=== PATIENT | male | born 1950 | race Caucasian/White ===

== ENCOUNTER 2019-01-26 11:48 | Emergency (ER) | payer MEDICARE, OTHER ==
[2019-01-26] MEDS ORDERED: NS(*) 0.9% 1000 ML BAG 1,000 ML IV ONE (11:52)
--- NOTE | 2019-01-26 11:57 | ER Report ---
History and Physical Time Seen By MD: 11:52 HPI/ROS CHIEF COMPLAINT: Right flank pain HISTORY OF PRESENT ILLNESS: This is a 68-year-old male presents to the emergency department for right flank pain. Patient lives in [facility], has been h aving right flank pain for the past 3 days. He does have a history of kidney stones, most recent one was 10 years ago. He did present today to [facility], they noted hematuria on dipstick, but the flank pain they did give him 30 mg IV Toradol which did seem to improve his discomfort. There was concern of an obstructing stone since moisten to the ER for an evaluation. Patient arrives alert and oriented, interacting well, no complaints at this time other than slight achiness to the right flank. No nausea or vomiting. No chest pain. No fevers or chills. REVIEW OF SYSTEMS: Constitutional: No fever, no chills. Eyes: No discharge. ENT: No sore throat. Cardiovascular: No chest pain, no palpitations. Respiratory: No cough, no shortness of breath. Gastrointestinal: As above. Genitourinary: No hematuria. Musculoskeletal: As above. Skin: No rashes. Neurological: No headache. Allergies: Coded Allergies: Sulfa (Sulfonamide Antibiotics) (Verified Allergy, Mild, rash, 01/26/19) atorvastatin (Verified Adverse Reaction, Unknown, 01/26/19) Home Meds Active Scripts Hydrocodone Bit/Acetaminophen (HYDROCODON-ACETAMINOPHEN 5-325) 1 Each Tablet, 1 EACH PO Q4-6H PRN for PAIN, #6 TAB Prov:DREW BADILLO-BC 01/26/19 Tamsulosin Hcl (FLOMAX) 0.4 Mg Cap.er.24h, 0.4 MG PO DAILY for 30 Days, #30 CAP Prov:DREW BADILLO-BC 01/26/19 Past Medical/Surgical History Patient has a past medical and surgical history of sinus surgery, tonsillectomy, multiple concussions, hypertension, hypercholesterolemia. Kidney stones 2. Reviewed Nurses Notes: Yes Constitutional Vital Sign - Last 24 Hours 01/26/19 01/26/19 01/26/19 01/26/19 11:50 12:00 12:15 12:30 Temp 98.1 Pulse 72 69 66 69 Resp 16 B/P (MAP) 169/84 149/69 (95) 169/93 (118) Pulse Ox 95 95 94 87 O2 Delivery Room Air 01/26/19 01/26/19 01/26/19 01/26/19 12:45 13:00 13:15 13:30 Pulse 57 64 66 65 B/P (MAP) 155/97 (116) 146/81 (102) Pulse Ox 90 93 91 89 01/26/19 01/26/19 13:45 13:59 Pulse 68 B/P (MAP) 155/84 (107) Pulse Ox 94 Physical Exam General Appearance: The patient is alert, has no immediate need for airway protection and no signs of toxicity. Eyes: Pupils equal and round no pallor or injection. ENT, Mouth: Mucous membranes are moist. Respiratory: There are no retractions, lungs are clear to auscultation. Cardiovascular: Regular rate and rhythm. No murmurs, clicks or rubs. Gastrointestinal: Abdomen is round, soft, mild tenderness to the left lower quadrant otherwise unremarkable. no masses, bowel sounds normal. Neurological: Alert and oriented 4. Moving all extremities. Following all commands. No focal neurodeficits. Skin: Warm and dry, no rashes. Musculoskeletal: Neck is supple non tender. Extremities are nontender, nonswollen and have full range of motion. DIFFERENTIAL DIAGNOSIS: After history and physical exam differential diagnosis was considered for back pain including but not limited to muscular pain, renal colic, herniated disc, spine fracture, constipation, intra-abdominal causes and urinary tract infection. Medical Decision Making Data Points Result Diagram: 01/26/19 1112 01/26/19 1112 Laboratory Hematology Test 01/26/19 11:12 Red Blood Count 4.96 M/uL (4.00-5.60) Mean Corpuscular Volume 90.1 fL (80.0-96.0) Mean Corpuscular Hemoglobin 31.6 pg (26.0-33.0) Mean Corpuscular Hemoglobin Concent 35.1 g/dL (32.0-36.0) Red Cell Distribution Width 12.3 % (11.5-14.5) Mean Platelet Volume 7.2 fL (7.2-11.1) Neutrophils (%) (Auto) 71.2 % (39.4-72.5) Lymphocytes (%) (Auto) 19.5 % (17.6-49.6) Monocytes (%) (Auto) 8.0 % (4.1-12.4) Eosinophils (%) (Auto) 1.0 % (0.4-6.7) Basophils (%) (Auto) 0.3 % (0.3-1.4) Nucleated RBC Relative Count (auto) 0.0 /100WBC Neutrophils # (Auto) 6.1 K/uL (2.0-7.4) Lymphocytes # (Auto) 1.7 K/uL (1.3-3.6) Monocytes # (Auto) 0.7 K/uL (0.3-1.0) Eosinophils # (Auto) 0.1 K/uL (0.0-0.5) Basophils # (Auto) 0.0 K/uL (0.0-0.1) Nucleated RBC Absolute Count (auto) 0.00 K/uL Peripheral Blood Smear No Y/N Sodium Level 140 mmol/L (137-145) Potassium Level 4.3 mmol/L (3.5-5.0) Chloride Level 105 mmol/L (98-107) Carbon Dioxide Level 26 mmol/L (22-30) Blood Urea Nitrogen 13 mg/dl (9-21) Creatinine 1.10 mg/dl (0.66-1.25) Glomerular Filtration Rate Calc > 60.0 Random Glucose 119 mg/dl (75-110) Calcium Level 9.9 mg/dl (8.4-10.2) Total Bilirubin 1.0 mg/dl (0.2-1.3) Aspartate Amino Transf (AST/SGOT) 28 U/L (0-35) Alanine Aminotransferase (ALT/SGPT) 31 U/L (0-56) Alkaline Phosphatase 53 U/L (0-126) Total Protein 7.1 g/dl (6.3-8.2) Albumin 4.2 g/dl (3.5-5.0) Chemistry Test 01/26/19 11:12 White Blood Count 8.6 k/uL (4.5-11.0) Red Blood Count 4.96 M/uL (4.00-5.60) Hemoglobin 15.7 g/dL (14.0-18.0) Hematocrit 44.7 % (42.0-52.0) Mean Corpuscular Volume 90.1 fL (80.0-96.0) Mean Corpuscular Hemoglobin 31.6 pg (26.0-33.0) Mean Corpuscular Hemoglobin Concent 35.1 g/dL (32.0-36.0) Red Cell Distribution Width 12.3 % (11.5-14.5) Platelet Count 180 K/uL (150-450) Mean Platelet Volume 7.2 fL (7.2-11.1) Neutrophils (%) (Auto) 71.2 % (39.4-72.5) Lymphocytes (%) (Auto) 19.5 % (17.6-49.6) Monocytes (%) (Auto) 8.0 % (4.1-12.4) Eosinophils (%) (Auto) 1.0 % (0.4-6.7) Basophils (%) (Auto) 0.3 % (0.3-1.4) Nucleated RBC Relative Count (auto) 0.0 /100WBC Neutrophils # (Auto) 6.1 K/uL (2.0-7.4) Lymphocytes # (Auto) 1.7 K/uL (1.3-3.6) Monocytes # (Auto) 0.7 K/uL (0.3-1.0) Eosinophils # (Auto) 0.1 K/uL (0.0-0.5) Basophils # (Auto) 0.0 K/uL (0.0-0.1) Nucleated RBC Absolute Count (auto) 0.00 K/uL Peripheral Blood Smear No Y/N Glomerular Filtration Rate Calc > 60.0 Calcium Level 9.9 mg/dl (8.4-10.2) Total Bilirubin 1.0 mg/dl (0.2-1.3) Aspartate Amino Transf (AST/SGOT) 28 U/L (0-35) Alanine Aminotransferase (ALT/SGPT) 31 U/L (0-56) Alkaline Phosphatase 53 U/L (0-126) Total Protein 7.1 g/dl (6.3-8.2) Albumin 4.2 g/dl (3.5-5.0) EKG/Imaging Imaging PATIENT NAME: Jesse Estevez : 1950 MR: [id number] V: [id number] EXAM DATE: ORDERING PHYSICIAN: DREW BADILLO TECHNOLOGIST: Location: [facility] Patient: Jesse Estevez : 1950 Visit/Account:[id number] Date of Sevice: 01/26/2019 EXAMINATION: Abdomen and pelvis CT without contrast HISTORY: Evaluate for kidney stone TECHNIQUE: CT was performed through the abdomen and pelvis without iv contrast. Sagittal and coronal reformatted images were generated. One of the following dose optimization techniques was utilized in the performance of this exam: automated exposure control; adjustment of the mA and/or kV according to patient size; or use of iterative reconstruction technique. Specific details can be referenced in the facility's radiology CT exam operational policy. COMPARISON: July 13, 2012 FINDINGS: Lower chest: Normal. Spleen: Normal. Adrenal glands: Normal. Pancreas: Normal. Kidneys: Normal left kidney. Small right renal cysts. Mild to moderate right hydronephrosis and mild right hydroureter secondary to a 5 mm calculus in the distal right ureter. Liver / biliary: Normal gallbladder, normal liver. Vessels: Normal for age. Lymph node assessment: Normal. Bowel including small bowel, colon and appendix: Normal stomach, normal small bowel, normal appendix, and normal colon. Peritoneum / retroperitoneum / mesentery: Normal. Pelvic structures: Normal bladder, normal prostate and normal rectum. No pelvic fluid or adenopathy. Body wall: Small fat-containing bilateral inguinal hernias. Musculoskeletal: No acute osseous abnormality. Moderate to severe L5-S1 disc space degeneration. IMPRESSION: 1. Mild to moderate right hydronephrosis and mild right hydroureter secondary to a 5 mm distal right ureteral calculus. 2. Otherwise unremarkable abdomen and pelvis CT. Report Dictated By: Alberto Gibbs MD at 01/26/2019 1:00 PM Report E-Signed By: Alberto Gibbs MD at 01/26/2019 1:04 PM [id number] ED Course/Re-evaluation Clinical Indication for ER IV: Hydration, IV Access ED Course The patient was admitted to room. A history and physical were obtained. Differential diagnoses were considered. An IV was started via EMS. A 1 L normal saline bolus was given and round. Patient was also given 30 mg IV Toradol prior to arrival. A CBC, CMP were obtained. Laboratory studies unremarkable. His urinalysis from the clinic showing large blood. CT the abdomen and pelvis showing right hydronephrosis and hydroureter, and a distal 5 mm ureteral calculus. I did review the results with the patient. I also spoke with Dr. Mata as noted below, patient was given several options, he is elected to discharge from the emergency department stay here locally, strain his urine if he has recurrent pain or any other concerns he'll return to the ER otherwise follow-up with Dr. Mata. Patient was also given a prescription for tamsulosin and hydrocodone. Patient had no other questions or concerns at this time and was discharged home. Patient was agreeable with this plan of care. 01/26/2019 1:23:28 pm I did speak with Dr. brendan Mata the urologist on-call. Decision to Disposition Date: January 26, 2019 Decision to Disposition Time: 13:35 Depart Departure Latest Vital Signs Vital Signs Date Time Temp Pulse Resp B/P (MAP) Pulse Ox O2 Delivery O2 Flow Rate FiO2 01/26/19 13:59 155/84 (107) 01/26/19 13:45 68 94 01/26/19 11:50 98.1 16 Room Air Impression: Primary Impression: Ureteral calculus Condition: Improved Disposition: HOME OR SELF-CARE Referrals: LUKE MATA MD 5 Days New Scripts Hydrocodone Bit/Acetaminophen (HYDROCODON-ACETAMINOPHEN 5-325) 1 Each Tablet 1 EACH PO Q4-6H PRN for PAIN, #6 TAB Prov: DREW BADILLOP-BC 01/26/19 Tamsulosin Hcl (FLOMAX) 0.4 Mg Cap.er.24h 0.4 MG PO DAILY for 30 Days, #30 CAP Prov: DREW BADILLO-BC 01/26/19 Patient Instructions: Kidney Stones (ED) Additional Instructions: You do have a kidney stone on the right side. Please stay locally, filter your urine and look for the kidney stone. If you have continued pain throughout 9 tomorrow and feels that the stone is perhaps not moving then you may return to either the emergency department, he ca n also call Dr. Mata the urologist that I spoke with regarding your kidney stone. Be sure to drink plenty of water. Get plenty of rest. Take Flomax once a day for the next 30 days. Take hydrocodone as needed for severe pain. You can take ibuprofen 600-800 mg every 8 hours as needed, in lieu of the hydrocodone. Return to the emergency department for any acute concerns or worsening symptoms. DREW BADILLO SUPERVISOR [employer]-BC January 26, 2019 11:57
[2019-01-26 12:02] LABS: PLATELET COUNT, AUTOMATED 180 K/uL (150-450)
[2019-01-26] MEDS ORDERED: EMS LR(*) 1000 ML BAG 1,000 ML IV ONE (12:05)
--- NOTE | 2019-01-26 13:08 | RADIOLOGY IMAGING REPORT ---
FACILITY: [facility] PATIENT NAME: Jesse Estevez : 1950 MR: [id number] V: [id number] EXAM DATE: ORDERING PHYSICIAN: DREW BADILLO TECHNOLOGIST: Location: [facility] Patient: Jesse Estevez : 1950 Visit/Account:[id number] Date of Sevice: 01/26/2019 EXAMINATION: Abdomen and pelvis CT without contrast HISTORY: Evaluate for kidney stone TECHNIQUE: CT was performed through the abdomen and pelvis without iv contrast. Sagittal and coron al reformatted images were generated. One of the following dose optimization techniques was utilized in the performance of this exam: autom ated exposure control; adjustment of the mA and/or kV according to patient size; or use of iterative reconstruction technique. Specific details can be referenced in the facility's radiology CT exam ope rational policy. COMPARISON: July 13, 2012 FINDINGS: Lower chest: Normal. Spleen: Normal. Adrenal glands: Normal. Pancreas: Normal. Kidneys: Normal left kidney. Small right renal cysts. Mild to moderate right hydronephrosis and mil d right hydroureter secondary to a 5 mm calculus in the distal right ureter. Liver / biliary: Normal gallbladder, normal liver. Vessels: Normal for age. Lymph node assessment: Normal. Bowel including small bowel, colon and appendix: Normal stomach, normal small bowel, normal appendix, and normal colon. Peritoneum / retroperitoneum / mesentery: Normal. Pelvic structures: Normal bladder, normal prostate and normal rectum. No pelvic fluid or adenopat hy. Body wall: Small fat-containing bilateral inguinal hernias. Musculoskeletal: No acute osseous abnormality. Moderate to severe L5-S1 disc space degeneration. IMPRESSION: 1. Mild to moderate right hydronephrosis and mild right hydroureter secondary to a 5 mm distal right ureteral calculus. 2. Otherwise unremarkable abdomen and pelvis CT. Report Dictated By: Alberto Gibbs MD at 01/26/2019 1:00 PM Report E-Signed By: Alberto Gibbs MD at 01/26/2019 1:04 PM [id number]
[2019-01-26] MEDS ORDERED: HYDR-385 PO (13:46)
[2019-01-26] MEDS ORDERED: TAMS0.4C25 PO (13:46)
[2019-01-26 13:59] VITALS: BP 155/84
== END 2019-01-26 13:56 | disposition home or self-care (01) ==
LOC: ER 11:54
DX: N13.2 Hydronephrosis with renal and ureteral calculous obstruction (principal)
CPT/HCPCS: 74176; 85025; 96360; 96361; 99284; J7030; J7120; 82040; 82247; 82310; 82374; 82435; 82565; 82947; 84075; 84132; 84155; 84295; 84450; 84460; 84520